=== PATIENT | male | born 1995 | race Caucasian/White ===

== ENCOUNTER 2021-11-01 19:41 | Emergency (ER) | payer SELFPAY ==
--- NOTE | ~2021-11-01 | CT_ITS ---
EXAMINATION: CT abdomen pelvis wo con DATE: 11/01/2021 20:50 INDICATION: Left lower back pain TECHNIQUE: Computed tomography (CT) of the abdomen and pelvis was performed without intravenous contr ast. The dose-length product (DLP) was 376.13 mGy-cm. Automated exposure control and iterative recons truction technique were employed. COMPARISON: None FINDINGS: The lung bases are clear. The heart size is normal. Within the limitations of noncontrast e xamination, the liver, spleen, pancreas, gallbladder, and adrenal glands are normal. The kidneys are unremarkable. No pathologically enlarged abdominal or pelvic lymph nodes are identified. There is no free intraperitoneal gas or evidence of bowel obstruction. IMPRESSION: 1. No CT correlate for the patient's symptoms. Reviewed, dictated and finalized at location F.
[2021-11-01 19:45] VITALS: BP 150/85; PULSE 93; RESP 16; TEMP 36.7; O2SAT 100
--- NOTE | 2021-11-01 20:16 | ED.GENADULT ---
HPI - General Adult General Chief complaint: Abdominal Pain <JANUARY Guallpa Last Filed: 11/02/21 01:52> Stated complaint: back/abdominal pain <JANUARY Guallpa Last Filed: 11/02/21 01:52> Time Seen by Provider: 11/01/21 19:54 <JANUARY Guallpa Last Filed: 11/02/21 01:52> History of Present Illness HPI narrative: Patient is a 25-year-old male with a history of neurofibromatosis here for evaluation of low back pain over the past week. Patient pain is in the middle and right side of his low back and does not radiate. Patient states the pain was relatively constant over the past week, worse in the morning and is dull in nature. States over the past week his pain spontaneously resolved by nighttime, however today the pain acutely worsened and became sharp in nature, and is now associated with some suprapubic pain, nausea and chills. He does work a physically active job and lifts heavy items. Denies relief after ibuprofen, ice and heat packs. No vomiting, fevers, diarrhea, hematuria, dysuria, history of IV drug use. <JANUARY Guallpa Last Filed: 11/02/21 01:52> Related Data Allergies/adverse reactions: Allergies Allergy/AdvReac Type Severity Reaction Status Date / Time No Known Allergies Allergy Verified 11/01/21 21:38 <JANUARY Guallpa Last Filed: 11/02/21 01:52> Review of Systems Review of Systems: Gen: Reports chills, denies fevers. Eyes: Denies eye pain or visual change ENT: Denies congestion Respiratory: Denies shortness of breath or cough CV: Denies chest pain or palpitations GI: Reports suprapubic pain and nausea. Denies emesis or diarrhea : denies burning, urgency, frequency or hematuria Musculoskeletal: Reports back pain. Neuro: Denies numbness, tingling, weakness or focal weakness Skin: Denies rash Except as documented, all other systems reviewed and negative <JANUARY Guallpa Last Filed: 11/02/21 01:52> Exam Narrative: APPEARANCE: No acute distress, nontoxic, resting in bed EYES: EOMI HEENT: Normocephalic, atraumatic, OMM RESPIRATORY: No respiratory distress. Clear to auscultation bilaterally with no rhonchi wheezing or rales. CARDIOVASCULAR: Regular rate and rhythm without murmurs rubs or gallops. ABDOMINAL: No CVA tenderness. Mild tenderness in suprapubic region. Soft, nondistended, no rebound or guarding MUSCULOSKELETAL: No tenderness along midline of C, T or L spine. Mildly tender to palpation along R paraspinal muscles. Moves all extremities. No clubbing, cyanosis or edema. Straight leg raise negative bilaterally. NEURO: Awake and alert. Following commands, speech normal, no focal deficits SKIN: Warm, dry. No rashes lesions or abrasions PSYCHIATRIC: Normal affect/mood <Jacki Hernadez PA-C - Last Filed: 11/02/21 01:52> Course TOY STUFFER/PA Physician Supervision I did not see this patient nor was the care plan discussed with me, labs and imaging reviewed I was available for evaluation and consultation, I agree with the documentation <Santiago Alfaro MD - Last Filed: 11/02/21 11:58> Vital Signs Vital signs: Vital Signs Temperature 36.7 C 11/01/21 19:45 Pulse Rate 93 11/01/21 19:45 Respiratory Rate 16 11/01/21 19:45 Blood Pressure 150/85 H 11/01/21 19:45 Pulse Oximetry 100 11/01/21 19:45 Temperature 36.8 C 11/01/21 22:33 Pulse Rate 70 11/01/21 22:33 Respiratory Rate 16 11/01/21 22:33 Blood Pressure 118/70 11/01/21 22:33 Pulse Oximetry 99 11/01/21 22:33 <Jacki Hernadez PA-C - Last Filed: 11/02/21 01:52> Vital Signs Temperature 36.7 C 11/01/21 19:45 Pulse Rate 93 11/01/21 19:45 Respiratory Rate 16 11/01/21 19:45 Blood Pressure 150/85 H 11/01/21 19:45 Pulse Oximetry 100 11/01/21 19:45 Temperature 36.8 C 11/01/21 22:33 Pulse Rate 70 11/01/21 22:33 Respiratory Rate 16 11/01/21 22:33 Blood Pressure 118/
[2021-11-01 20:21] VITALS: BP 138/74; PULSE 76; RESP 16; TEMP 37; O2SAT 100
[2021-11-01 20:29] LABS: Basophils Percent Auto 0.3 % (0.2-1.2); Eosinophils Percent Auto 0.1 % (0-4.4); Hematocrit 43.7 % (42.0-52.0); Immature Granulocyte Absolute 0.05 K/mm3 (0.00-0.031); Immature Granulocyte Percent A 0.5 % (0-0.5); Lymphocytes Absolute Auto 1.37 K/mm3 (0.9-3.2); Lymphocytes Percent Auto 13.3 % (18.3-44.2); Mean Corpuscular HGB Conc 34.3 g/dl (32-36); Mean Corpuscular Hemoglobin 29.8 pg (26-34); Mean Corpuscular Volume 86.9 fl (80-100); Mean Platelet Volume 9.7 fl (7.4-10.4); Monocytes Absolute Auto 0.6 K/mm3 (0.1-0.6); Monocytes Percent Auto 5.4 % (2.6-8.5); Neutrophils Absolute Auto 8.3 K/mm3 (1.3-6.7); Neutrophils Percent Auto 80.4 % (45.5-73.1); Platelet Count Result 219 k/mm3 (150-375); Red Blood Count 5.03 M/mm3 (4.6-6.20); White Blood Count 10.3 K/mm3 (4.5-10.0)
[2021-11-01 20:37] LABS: Appearance Urine Clear (Clear); Bilirubin Urine 2+ (Negative); Blood Urine Negative (Negative); Color Urine Yellow (Yellow); Glucose Urine UA Negative (Negative); Ketones Urine 4+ mg/dL (Negative); Leukocyte Esterase Ur Negative LEU/UL (Negative); Nitrate Urine Negative (Negative); Protein Urine Negative (Negative); Specific Grav Ur 1.025 (1.001-1.035)
[2021-11-01 20:41] LABS: Alanine Aminotransferase 25 U/L (6-50); Alkaline Phosphatase 47 U/L (38-126); Anion Gap 10 mmol/L (8-16); Aspartate Amino Transferase 32 U/L (17-59); Bilirubin,Total 1.9 mg/dL (0.2-1.3); Blood Urea Nitrogen 20 mg/dL (9-20); Calcium 9.5 mg/dL (8.4-10.2); Carbon Dioxide 26 mmol/L (22-30); Chloride 101 mmol/L (98-107); Estimated Glomerular Filt Rate > 60; Glucose 107 mg/dL (65-110); Lipase 25 U/L (23-300); Potassium 3.7 mmol/L (3.4-5.0); Sodium 137 mmol/L (137-145)
[2021-11-01 20:44] LABS: Amorphous Sediment Urine Few; Bacteria Urine Trace /hpf; Mucus Urine Few /lpf; WBC Urine 0-3 /hpf
[2021-11-01 20:45] LABS: Add Urine Microscopic? YES
[2021-11-01 21:30] VITALS: BP 126/74; PULSE 70; RESP 16; TEMP 36.8; O2SAT 100
[2021-11-01] MEDS: SODIUM CHLORIDE 0.9% IV 1,000 ML 999 ML IV CONT (21:39)
[2021-11-01] MEDS: KETOROLAC 15 MG/ML VIAL (*BKC) IV PUSH (21:39)
[2021-11-01 22:33] VITALS: BP 118/70; PULSE 70; RESP 16; TEMP 36.8; O2SAT 99
== END 2021-11-01 22:35 | disposition home or self-care (01) ==
PROVIDERS: Physician Assistant; Emergency Provider Emergency Medicine
DX: S39.012A Strain of muscle, fascia and tendon of lower back, initial encounter (principal); Q85.00 Neurofibromatosis, unspecified; X50.0XXA Overexertion from strenuous movement or load, initial encounter
CPT/HCPCS: 36415; 74176; 80053; 81001; 83690; 85025; 96361; 96374; 99284; J1885; J7030